=== PATIENT | female | born 1945 | race African-American/Black ===

== ENCOUNTER 2016-06-18 06:59 | Inpatient (IN) | payer OTHER ==
[~2016-06-18] VITALS: Ht 160 cm; Wt 57.5 kg
[~2016-06-18 06:59] MED LIST: ABILIFY5 MG PO; ASPIR 8181 M1 PO; CYANOCOBALAM1000 MCG PO; HYDROCHLOROTHIA25 MG PO; IRON325 M1 PO; LISINOPRIL PO; LISINOPRIL40 MG PO; METOPROLOL PO; SUPER MULTIVIT1 EACH PO; VYTORIN 10/81 TABLET PO; [UNRECOGNIZED DRUG - OTHER]
[2016-06-18 08:04] LABS: EOSINOPHIL (%) 1.3 % (0-5); EOSINOPHIL COUNT 0.1 K/uL (0-0.3); IMMATURE GRANULOCYTE (%) 0.7 % (0.0-0.7); IMMATURE GRANULOCYTE COUNT 0.5 K/uL; LYMPHOCYTE COUNT 1.4 K/uL (1.0-2.8); MCH 29.7 PG (29.0-34.0); MCHC 33.1 G/DL (30.0-36.0); MCV 89.7 FL (83-99); MONOCYTE (%) 4.9 % (3-12); MONOCYTE COUNT 0.4 K/uL (0-0.8); NEUTROPHIL (%) 73.8 % (45-76); NEUTROPHIL COUNT 5.5 K/uL (1.8-6.4); PLATELET COUNT 184 K/uL (156-360); RBC DIS.WIDTH-CV 13.3 % (11.8-14.6); RBC DIS.WIDTH-SD 43.1 % (39-53); RED BLOOD COUNT 4.35 M/uL (3.80-5.20); WHITE BLOOD COUNT 7.5 K/uL (4.1-10.2)
[2016-06-18 08:27] LABS: POINT-OF-CARE METER ID UU13113702
[2016-06-18 08:35] LABS: ANION GAP 12 MEQ/L (2-14); CHLORIDE 104 MEQ/L (99-109); POTASSIUM 3.4 MEQ/L (3.7-5.4); SAMPLE HEMOLYSIS CHECK 0; SAMPLE ICTERIC CHECK 0; SAMPLE LIPEMIA CHECK 0; SODIUM 142 MEQ/L (136-147); TOTAL BILIRUBIN 0.9 MG/DL (0.0-1.0)
[2016-06-18 08:41] LABS: ALKALINE PHOSPHATASE 70 IU/L (3-129); GFR ESTIMATE (CALCULATED) > 59 mL/min/; GLUCOSE 196 mg/dL (70-99); UREA NITROGEN (BUN) 25 mg/dL (9-23)
[2016-06-18 08:45] LABS: TROP-I INTERPRETATION NEGATIVE; TROPONIN-I < 0.01 ng/mL (0.0-0.30)
[2016-06-18] MEDS ORDERED: VYTORIN 10/81 TABLET PO (11:23)
[2016-06-18] MEDS ORDERED: LISINOPRIL40 MG PO (11:24)
[2016-06-18] MEDS ORDERED: HYDROCHLOROTHIA25 MG PO (11:25)
[2016-06-18] MEDS ORDERED: TOPROL XL50 MG PO (11:26)
[2016-06-18] MEDS ORDERED: CO Q-10100 MG PO (11:26)
[2016-06-18 12:52] LABS: ADD MIUA? YES; BILIRUBIN NEGATIVE; BLOOD NEGATIVE; COLOR YELLOW ((YELLOW)); GLUCOSE (STRIP) NEGATIVE; KETONES NEGATIVE; LEUKOCYTES SMALL; NITRITE NEGATIVE; PH, URINE 6.5 (5-8); PROTEIN (STRIP) 30; UROBILINOGEN 0.2 MG/DL (0.2-1.0)
[2016-06-18 13:12] LABS: BACTERIA RARE; CASTS NONE SEEN /LPF; EPITHELIAL CELLS RARE; MUCUS NONE SEEN; RED BLOOD CELLS NONE SEEN /HPF (0-5); UCUL ADDED? NO
[2016-06-18 13:13] LABS: CRYSTALS NONE SEEN
[2016-06-18 13:18] VITALS: BP 165/71
[2016-06-18 19:40] VITALS: BP 184/85
[2016-06-19] VITALS (9 sets, daily range): BP systolic 179–202; BP diastolic 78–96
[2016-06-19 07:16] LABS: ANION GAP 7 MEQ/L (2-14); CHLORIDE 108 MEQ/L (99-109); GFR ESTIMATE (CALCULATED) 52 mL/min/; SAMPLE HEMOLYSIS CHECK 0; SAMPLE ICTERIC CHECK 0; SAMPLE LIPEMIA CHECK 0; SODIUM 141 MEQ/L (136-147); UREA NITROGEN (BUN) 20 mg/dL (9-23)
[2016-06-19 07:24] LABS: GLUCOSE 109 mg/dL (70-99); POTASSIUM 4.7 MEQ/L (3.7-5.4)
[2016-06-20 03:00] VITALS: BP 192/82
[2016-06-20 04:15] VITALS: BP 182/88
[2016-06-20 05:21] VITALS: BP 190/82
[2016-06-20 07:52] VITALS: BP 190/100
[2016-06-20 10:23] VITALS: BP 140/70
[2016-06-20 11:30] VITALS: BP 165/76
[2016-06-20] MEDS ORDERED: AMLODIPINE BESYL5 MG PO (13:34)
[2016-06-20] MEDS ORDERED: CEFTIN500 MG PO (13:36)
== END 2016-06-20 15:47 | disposition home or self-care (01) | DRG 690 ==
LOC: EME → EDBD 06:59 → 2EAST 10:13 → EDOF 10:13 → 2EAST 12:59
PROVIDERS: Emergency Medicine; Family Medicine
DX: N10 Acute pyelonephritis (principal); R78.81 Bacteremia; B95.4 Other streptococcus as the cause of diseases classified elsewhere; M62.81 Muscle weakness (generalized); E87.6 Hypokalemia; R73.9 Hyperglycemia, unspecified; I10 Essential (primary) hypertension; E78.5 Hyperlipidemia, unspecified; I25.10 Atherosclerotic heart disease of native coronary artery without angina pectoris; Z86.73 Personal history of transient ischemic attack (TIA), and cerebral infarction without residual deficits; D50.9 Iron deficiency anemia, unspecified; R74.8 Abnormal levels of other serum enzymes; M81.0 Age-related osteoporosis without current pathological fracture; F32.9 Major depressive disorder, single episode, unspecified; R41.3 Other amnesia; I65.23 Occlusion and stenosis of bilateral carotid arteries; I35.1 Nonrheumatic aortic (valve) insufficiency; Z66 Do not resuscitate; Z95.5 Presence of coronary angioplasty implant and graft; Z79.82 Long term (current) use of aspirin; Z87.891 Personal history of nicotine dependence; Z98.890 Other specified postprocedural states
CPT/HCPCS: 70450; 71010; 80048; 80053; 81003; 82550; 82948; 83605; 84484; 85025; 87040; 87077; 87086; 87186; 87801; 93005; 99281; 99285; J0360; J0744; J2405; J3480; J7040

== ENCOUNTER 2017-01-26 10:34 | Emergency (ER) | payer OTHER ==
[~2017-01-26] VITALS: Ht 160 cm; Wt 65.1 kg
[~2017-01-26 10:34] MED LIST changes: +AMLODIPINE BESYL5 MG PO; +CEFTIN500 MG PO; +CO Q-10100 MG PO; +TOPROL XL50 MG PO
[2017-01-26 11:09] LABS: EOSINOPHIL (%) 2.2 % (0-5); EOSINOPHIL COUNT 0.1 K/uL (0-0.3); HEMATOCRIT 37.7 % (36.0-46.0); IMMATURE GRANULOCYTE (%) 0.3 % (0.0-0.7); INSTRUMENT ABS NEUTROPHIL CT 4.3 K/uL; LYMPHOCYTE COUNT 1.2 K/uL (1.0-2.8); MCH 29.6 PG (29.0-34.0); MCHC 33.2 G/DL (30.0-36.0); MCV 89.3 FL (83-99); MEAN PLAT.VOLUME 10.9 uM^3 (9.5-12.4); MONOCYTE (%) 8.8 % (3-12); MONOCYTE COUNT 0.6 K/uL (0-0.8); NEUTROPHIL (%) 69.2 % (45-76); NEUTROPHIL COUNT 4.3 K/uL (1.8-6.4); PLATELET COUNT 164 K/uL (156-360); RBC DIS.WIDTH-SD 42.6 % (39-53); RED BLOOD COUNT 4.22 M/uL (3.80-5.20); WHITE BLOOD COUNT 6.3 K/uL (4.1-10.2)
[2017-01-26 11:28] LABS: CHLORIDE 106 mEq/L (99-109); POTASSIUM 4.4 mEq/L (3.7-5.4); SODIUM 142 mEq/L (136-147)
[2017-01-26 11:29] LABS: GLUCOSE 104 mg/dL (70-99)
[2017-01-26 11:31] LABS: ANION GAP 10 MEQ/L (2-14)
[2017-01-26 11:33] LABS: GFR ESTIMATE (CALCULATED) > 59 mL/min/
[2017-01-26 11:34] LABS: UREA NITROGEN (BUN) 29 mg/dL (9-23)
[2017-01-26 11:35] LABS: TROP-I INTERPRETATION NEGATIVE; TROPONIN-I < 0.01 ng/mL (0.0-0.30)
[2017-01-26 13:53] VITALS: BP 175/89
== END 2017-01-26 14:00 | disposition home or self-care (01) ==
LOC: EME 10:34
PROVIDERS: Emergency Medicine
DX: R90.0 Intracranial space-occupying lesion found on diagnostic imaging of central nervous system (principal); I10 Essential (primary) hypertension; Z86.73 Personal history of transient ischemic attack (TIA), and cerebral infarction without residual deficits; Z87.891 Personal history of nicotine dependence
CPT/HCPCS: 70450; 80048; 84484; 85025; 85610; 93005; 99281; 99284